=== PATIENT | male | born 1985 | race Caucasian/White ===

== ENCOUNTER 2016-09-14 10:56 | Emergency (ER) | payer BC, OTHER ==
[~2016-09-14] VITALS: Ht 157.5 cm; Wt 94.5 kg
[2016-09-14 11:00] VITALS: Ht 157.5 cm; Wt 94.5 kg
[2016-09-14] MEDS ORDERED: DOXY100T20 PO (13:50)
--- NOTE | 2016-09-15 21:44 | ERD ---
ER Documentation Chief Complaint Date/Time DATE: 09/15/16 TIME: 21:38 Chief Complaint Complains of a spider bite to the right ankle HPI 30 year old male presents to ER with complaints of a spider bite to his right ankle. Patient states he woke up this morning and noticed redness and mild swelling around right ankle and believes it to be a spider bite. No recent outdoors or morillo exposure. No rash . Denies itching. Patient states he has pain with palpation. No fevers. No numbness/tingling or loss of sensation. ROS All systems reviewed and are negative except as per history of present illness. Medications Home Meds Active Scripts Doxycycline Hyclate* (Doxycycline Hyclate*) 100 Mg Tablet., 100 MG PO BID for 10 Days, TAB Prov:VIRGINIA JOLLEY NP 09/14/16 Allergies Allergies: Coded Allergies: Penicillins (Unverified Allergy, Unknown, 06/27/13) PMhx/Soc History of Surgery: Yes (LT HAND , LT FOOT ) Hx Alcohol Use: No Hx Substance Use: No Hx Tobacco Use: No Physical Exam Vitals Vital Signs Date Time Temp Pulse Resp B/P Pulse Ox O2 Delivery O2 Flow Rate FiO2 09/14/16 11:00 98.3 69 20 130/79 96 Physical Exam Const: no acute distress Head: Atraumatic Eyes: Normal Conjunctiva ENT: Normal External Ears, Nose and Mouth. Neck: Full range of motion..~ No meningismus. Resp: Clear to auscultation bilaterally Cardio: Regular rate and rhythm, no murmurs Abd: Soft, non tender, non distended. Normal bowel sounds Skin: mild erythema and edema to right malleolus. no demarcation. no rash or lesions. no vesicles. no fluctuance or abscess noted. Back: No midline or flank tenderness Ext: No cyanosis, or edema Neur: Awake and alert Psych: Normal Mood and Affect Procedures/MDM MDM: 30 year old male presents to ER with erythema and mild swelling to right malleolus. Remains afebrile and neurovascularly intact. No open areas, fluctuance, discharge or induration. Patient appears calm and stable. Low suspicion for abscess. Diagnosis is likely cellulitis. Patient is appropriate for outpatient management and will be discharged with prescription for Keflex. Instructed patient to follow up with PCP in the next 1 week as needed for reassessment. Return to ED for any new or worsening symptoms. Departure Diagnosis: Primary Impression: Insect bite Encounter type: initial encounter Qualified Code: W57.XXXA - Insect bite, initial encounter Condition: Stable Patient Instructions: Insect Bite Referrals: LISBETH MCKAY MD, DAVID MD [facility] YOU HAVE RECEIVED A MEDICAL SCREENING EXAM AND THE RESULTS INDICATE THAT YOU DO NOT HAVE A CONDITION THAT REQUIRES URGENT TREATMENT IN THE EMERGENCY DEPARTMENT. FURTHER EVALUATION AND TREATMENT OF YOUR CONDITION CAN WAIT UNTIL YOU ARE SEEN IN YOUR DOCTORS OFFICE WITHIN THE NEXT 1-2 DAYS. IT IS YOUR RESPONSIBILITY TO MAKE AN APPOINTMENT FOR FOLOW-UP CARE. IF YOU HAVE A PRIMARY DOCTOR --you should call your primary doctor and schedule an appointment IF YOU DO NOT HAVE A PRIMARY DOCTOR YOU CAN CALL OUR PHYSICIAN REFERRAL HOTLINE AT IF YOU CAN NOT AFFORD TO SEE A PHYSICIAN YOU CAN CHOSE FROM THE FOLLOWING [facility] [address] [facility] [address] [employer] [facility] [address] [facility] [address] [facility] [address] [facility]. [facility] [address] [facility]. [facility] YOU HAVE RECEIVED A MEDICAL SCREENING EXAM AND THE RESULTS INDICATE THAT YOU DO NOT HAVE A CONDITION THAT REQUIRES URGENT TREATMENT IN THE EMERGENCY DEPARTMENT. FURTHER EVALUATION AND TREATMENT OF YOUR CONDITION CAN WAIT UNTIL YOU ARE SEEN IN YOUR DOCTORS OFFICE WITHIN THE NEXT 1-2 DAYS. IT IS YOUR RESPONSIBILITY TO MAKE AN APPOINTMENT FOR FOLOW-UP CARE. IF YOU HAVE A PRIMARY DOCTOR --you should call your primary doctor and schedule and appointment IF YOU DO NOT HAVE A PRIMARY DOCTOR YOU CAN CALL OUR PHYSICIAN REFERRAL HOTLINE AT . IF YOU CAN NOT AFFORD TO SEE A PHYSICIAN YOU CAN CHOSE FROM THE FOLLOWING [facility] INSTITUTIONS: [facility] [address] [place] [address] [facility] [address] [place] [address] [address] Additional Instructions: Call your primary care doctor TOMORROW for an appointment during the next 2-3 days.See the doctor sooner or return here if your condition worsens before your appointment time. Return to ED for any high fever, chest pain, difficulty breathing, shortness breath, wheezing, vomiting, diarrhea, abdominal pain or any new or worsening symptoms. VIRGINIA JOLLEY NP September 15, 2016 21:44
== END 2016-09-14 14:17 | disposition home or self-care (01) ==
LOC: FTE 10:56
DX: S90.561A Insect bite (nonvenomous), right ankle, initial encounter (principal); W57.XXXA Bitten or stung by nonvenomous insect and other nonvenomous arthropods, initial encounter; Y92.9 Unspecified place or not applicable
CPT/HCPCS: 99283